=== PATIENT | male | born 1955 | race Caucasian/White ===

== ENCOUNTER 2016-08-12 11:50 | Emergency (ER) | payer OTHER ==
[~2016-08-12] VITALS: Ht 182.9 cm; Wt 110.0 kg
[~2016-08-12 11:50] MED LIST: CHLOR50 PO; LISI-360 PO; NITR0.4S SL
[2016-08-12 11:52] VITALS: BP 229/137; PULSE 70; RESP 12; TEMP 97.9; O2SAT 97
[2016-08-12 12:28] VITALS: BP_SYST 205; BP_SYST 227; BP_DIAS 119; BP_DIAS 122; PULSE 65; RESP 16; O2SAT 100
--- NOTE | 2016-08-12 17:54 | PD ---
HPI Chief Complaint: Hypertension Time Seen by Provider: 17:50 Travel History International Travel<30 days: No Contact w/Intl Traveler<30days: No Traveled to known affect area: No History of Present Illness HPI 61-year-old male presents to the emergency department for evaluation of hypertension and by his primary care physician at the [facility]. Patient states that his blood pressure has been elevated over the past month. Patient states that he would like a "therapeutic blood draw". He states this helps his blood pressure. Patient reports taking losartan and metoprolol and took these today. He reports a mild headache 08/07. He denies any chest pain or shortness breath. She reports normal stress test in 2010. [facility] Past Medical History Diminished Hearing: No Hypertension: Yes Past Surgical History Abdominal Surgery: Yes (INGUINAL HERNIA REPAIR) Oral Surgery: Yes (BROKEN JAW REPAIR) Social History Alcohol Use: Yes (OCCASIONAL) Tobacco Use: No Substance Use: No Allergies-Medications (Allergen,Severity, Reaction): Coded Allergies: No Known Allergies (Verified , 12/05/10) Reported Meds & Prescriptions Reported Meds & Active Scripts Active Reported Nitrostat (Nitroglycerin) 0.4 Mg Sub 0.4 Mg SL PRN Chlorthalidone 50 Mg Tab 50 Mg PO DAILY 1/2 TAB DAILY Lisinopril 10 Mg Tab 10 Mg PO DAILY Review of Systems Except as stated in HPI: all other systems reviewed are Neg Physical Exam Narrative GENERAL: Well-developed well-nourished male patient, ambulatory. Afebrile. SKIN: Warm and dry. HEAD: Normocephalic. Atraumatic. EYES: No scleral icterus. No injection or drainage. NECK: Supple, trachea midline. No JVD or lymphadenopathy. CARDIOVASCULAR: Regular rate and rhythm without murmurs, gallops, or rubs. RESPIRATORY: Breath sounds equal bilaterally. No accessory muscle use. Lungs sounds clear to auscultation. GASTROINTESTINAL: Abdomen soft, non-tender, nondistended. MUSCULOSKELETAL: No cyanosis, or edema. BACK: Nontender without obvious deformity. No CVA tenderness. Data Data Last Documented VS Vital Signs Date Time Temp Pulse Resp B/P Pulse Ox O2 Delivery O2 Flow Rate FiO2 08/12/16 12:28 65 16 227/122 100 205/119 08/12/16 11:52 97.9 Room Air Orders Complete Blood Count With Diff (08/12/16 17:57) Basic Metabolic Panel (Bmp) (08/12/16 17:57) Electrocardiogram (08/12/16 ) Iv Access Insert/Monitor (08/12/16 19:22) Hydralazine Inj (Apresoline Inj) (08/12/16 19:30) Labs Laboratory Tests Test 08/12/16 18:45 White Blood Count 6.5 TH/MM3 Red Blood Count 5.16 MIL/MM3 Hemoglobin 16.8 GM/DL Hematocrit 49.1 % Mean Corpuscular Volume 95.2 FL Mean Corpuscular Hemoglobin 32.5 PG Mean Corpuscular Hemoglobin 34.1 % Concent Red Cell Distribution Width 14.7 % Platelet Count 192 TH/MM3 Mean Platelet Volume 8.4 FL Neutrophils (%) (Auto) 64.5 % Lymphocytes (%) (Auto) 25.7 % Monocytes (%) (Auto) 6.5 % Eosinophils (%) (Auto) 2.9 % Basophils (%) (Auto) 0.4 % Neutrophils # (Auto) 4.2 TH/MM3 Lymphocytes # (Auto) 1.7 TH/MM3 Monocytes # (Auto) 0.4 TH/MM3 Eosinophils # (Auto) 0.2 TH/MM3 Basophils # (Auto) 0.0 TH/MM3 CBC Comment DIFF FINAL Differential Comment MDM Medical Decision Making Medical Screen Exam Complete: Yes Emergency Medical Condition: Yes Medical Record Reviewed: Yes Differential Diagnosis Hypertension versus electrolyte abnormality versus hypertensive emergency Narrative Course 61-year-old male presents to the emergency department for evaluation of elevated blood pressure. Patient initially seen in triage. Blood pressure is retaken in triage room which is [-]. Paty Martínez Aug 12, 2016 17:54
[2016-08-12 18:53] LABS: AUTOMATED NEUTROPHIL # 4.2 TH/MM3 (1.8-7.7); BASOPHIL % 0.4 % (0.0-2.0); EOSINOPHIL # 0.2 TH/MM3 (0-0.4); EOSINOPHIL % 2.9 % (0.0-4.0); HEMATOCRIT 49.1 % (39.0-51.0); HEMO FLAGS DIFF FINAL; LYMPH % 25.7 % (9.0-44.0); LYMPHOCYTE # 1.7 TH/MM3 (1.0-4.8); MEAN CELL VOLUME 95.2 FL (80.0-100.0); MEAN CORPUSCULAR HEMOGLOBIN 32.5 PG (27.0-34.0); MEAN CORPUSCULAR HGB CONC 34.1 % (32.0-36.0); MONO % 6.5 % (0.0-8.0); NEUT % 64.5 % (16.0-70.0); PLATELET COUNT 192 TH/MM3 (150-450); RED BLOOD COUNT 5.16 MIL/MM3 (4.50-5.90); RED CELL DISTRIBUTION WIDTH 14.7 % (11.6-17.2); WHITE BLOOD COUNT 6.5 TH/MM3 (4.0-11.0)
[2016-08-12 19:27] LABS: BICARBONATE 30.3 MEQ/L (21.0-32.0); POTASSIUM 3.8 MEQ/L (3.5-5.1)
[2016-08-12] MEDS ORDERED: hydrALAZINE HCL 20 MG/ML VIAL IV PUSH ONE (19:30)
[2016-08-12] MEDS ORDERED: PRAV40TA2 PO (19:39)
[2016-08-12] MEDS ORDERED: ASPI81TA81 PO (19:39)
[2016-08-12] MEDS ORDERED: METO100T PO (19:39)
[2016-08-12] MEDS ORDERED: LOSA100T PO (19:39)
[2016-08-12 19:40] VITALS: BP 214/104; PULSE 72; RESP 12; O2SAT 96
[2016-08-12 19:50] VITALS: BP 182/85; PULSE 76; RESP 12; O2SAT 98
[2016-08-12] MEDS ORDERED: CLON0.1T PO (20:03)
--- NOTE | 2016-08-12 20:03 | PD ---
Physical Exam Time Seen by Provider: 20:02 Narrative Patient was seen and evaluated initially in triage. Please refer to previous providers documentation for details surrounding the patient's current visit. Data Data Last Documented VS Vital Signs Date Time Temp Pulse Resp B/P Pulse Ox O2 Delivery O2 Flow Rate FiO2 08/12/16 20:39 72 16 152/69 100 08/12/16 19:50 Room Air 08/12/16 11:52 97.9 Orders Complete Blood Count With Diff (08/12/16 17:57) Basic Metabolic Panel (Bmp) (08/12/16 17:57) Electrocardiogram (08/12/16 ) Iv Access Insert/Monitor (08/12/16 19:22) Hydralazine Inj (Apresoline Inj) (08/12/16 19:30) Labs Laboratory Tests Test 08/12/16 08/12/16 17:57 18:45 Sodium Level 137 MEQ/L Potassium Level 3.8 MEQ/L Chloride Level 99 MEQ/L Carbon Dioxide Level 30.3 MEQ/L Anion Gap 8 MEQ/L Blood Urea Nitrogen 15 MG/DL Creatinine 1.23 MG/DL Estimat Glomerular Filtration 60 ML/MIN Rate Random Glucose 124 MG/DL Calcium Level 9.0 MG/DL White Blood Count 6.5 TH/MM3 Red Blood Count 5.16 MIL/MM3 Hemoglobin 16.8 GM/DL Hematocrit 49.1 % Mean Corpuscular Volume 95.2 FL Mean Corpuscular Hemoglobin 32.5 PG Mean Corpuscular Hemoglobin 34.1 % Concent Red Cell Distribution Width 14.7 % Platelet Count 192 TH/MM3 Mean Platelet Volume 8.4 FL Neutrophils (%) (Auto) 64.5 % Lymphocytes (%) (Auto) 25.7 % Monocytes (%) (Auto) 6.5 % Eosinophils (%) (Auto) 2.9 % Basophils (%) (Auto) 0.4 % Neutrophils # (Auto) 4.2 TH/MM3 Lymphocytes # (Auto) 1.7 TH/MM3 Monocytes # (Auto) 0.4 TH/MM3 Eosinophils # (Auto) 0.2 TH/MM3 Basophils # (Auto) 0.0 TH/MM3 CBC Comment DIFF FINAL Differential Comment MDM Medical Record Reviewed: Yes Supervised Visit with [facility]EN[facility]: No Differential Diagnosis Hypertension essential versus secondary versus hypertensive crisis versus urgency versus electrolyte abnormality Narrative Course 61-year-old male presents to emergency department for evaluation of high blood pressure. Patient's blood pressure is quite elevated but he is overall symptomatic. There are no focal deficits or weakness. Patient is given IV hydralazine and this brings his blood pressure down nicely. Lab work is without acute concern. I have discussed the patient with my attending physician. Patient is encouraged to take his blood pressure only once or twice a day. He is provided and as needed clonidine to be taken no more than twice a day. He is instructed to follow-up with his primary care provider and return immediately with any acute worsening of symptoms. Patient agrees with this plan of care. Diagnosis Primary Impression: Hypertension Qualified Code: I10 - Essential hypertension Referrals: Primary Care Physician Patient Instructions: General Instructions, Hypertension (ED) Additional Instruction: Continue medication as already prescribed Check your blood pressure once or twice a day. At the same time daily. No more than this. Keep a diary Follow-up with her primary care provider Return immediately to the emergency department with any acute worsening of symptoms Med/Other Pt SpecificInfo: Prescription(s) given Scripts Clonidine 0.1 Mg Tab0.1 Mg PO BID PRN (SBP> OR = 180, DBP> OR = 100) #15 TAB Ref 0 Prov:Ana Rosa Ortiz 08/12/16 Disposition: 01 DISCHARGE HOME Condition: Stable Ana Rosa Ortiz Aug 12, 2016 20:03
[2016-08-12 20:39] VITALS: BP 152/69
--- NOTE | 2016-08-13 08:44 | EKG ---
Date Performed: 08/12/2016 Time Performed: 18:15:14 PTAGE: 61 years EKG: Sinus rhythm NONSPECIFIC ST & T-WAVE ABNORMALITY BORDERLINE ECG PREVIOUS TRACING : 12/05/2010 11.57 DOCTOR: Scar Barth Interpretating Date/Time 08/13/2016 08:41:21
== END 2016-08-12 20:30 | disposition home or self-care (01) ==
LOC: NEPB 11:50
DX: I10 Essential (primary) hypertension (principal); R51 Headache; R94.31 Abnormal electrocardiogram [ECG] [EKG]
CPT/HCPCS: 80048; 85025; 93005; 96374; 99283; J0360

== ENCOUNTER 2017-04-07 22:17 | Emergency (ER) | payer OTHER ==
[~2017-04-07] VITALS: Ht 182.9 cm; Wt 110.0 kg
[~2017-04-07 22:17] MED LIST changes: +ASPI81TA81 PO; +CLON0.1T PO; +LOSA100T PO; +METO100T PO; +PRAV40TA2 PO
[2017-04-07] MEDS ORDERED: SODIUM CHLOR 0.9% 1000 ML INJ 1,000 ML IV ONE (22:51)
--- NOTE | 2017-04-07 22:53 | PD ---
HPI Chief Complaint: Lightheadedness Time Seen by Provider: 22:51 Travel History International Travel<30 days: No Contact w/Intl Traveler<30days: No History of Present Illness HPI 62yo M was brought in by [facility] after feeling lightheaded and nauseous. Pt was sitting in a bar when he became diaphoretic, nauseous and felt like he was going to pass out but did not. Pt was found to be hypotensive with systolic in the 70s. Denies any fever, chest pain, sob, vomiting, abdominal pain, focal weakness or numbness. Pt recently returned from [place]. PFSH Past Medical History High Cholesterol: Yes Diminished Hearing: No Hypertension: Yes Past Surgical History Abdominal Surgery: Yes (INGUINAL HERNIA REPAIR) Oral Surgery: Yes (BROKEN JAW REPAIR) Other Surgery: Yes (LT CORIOTED X 2) Social History Alcohol Use: Yes (OCCASIONAL) Tobacco Use: No Substance Use: No Allergies-Medications (Allergen,Severity, Reaction): Coded Allergies: No Known Allergies (Verified , 04/08/17) Reported Meds & Prescriptions Reported Meds & Active Scripts Active Clonidine (Clonidine HCl) 0.1 Mg Tab 0.1 Mg PO BID PRN Reported Aspir-81 (Aspirin) 81 Mg Tabdr 1 Tab PO DAILY Losartan (Losartan Potassium) 100 Mg Tab 100 Mg PO DAILY Metoprolol Tartrate 100 Mg Tab 100 Mg PO DAILY Pravastatin 40 Mg Tab 40 Mg PO HS Nitrostat (Nitroglycerin) 0.4 Mg Sub 0.4 Mg SL PRN Chlorthalidone 50 Mg Tab 50 Mg PO DAILY 1/2 TAB DAILY Lisinopril 10 mg (Lisinopril) 10 Mg Tab 10 Mg PO DAILY Review of Systems Except as stated in HPI: all other systems reviewed are Neg Physical Exam Narrative GENERAL: 62yo M not in distress. SKIN: Focused skin assessment warm/dry. HEAD: Atraumatic. Normocephalic. EYES: Pupils equal and round at 3mm bilaterally. No scleral icterus. No injection or drainage. ENT: No nasal bleeding or discharge. Mucous membranes pink and moist. NECK: Trachea midline. No JVD. CARDIOVASCULAR: Regular rate and rhythm. No murmur appreciated. RESPIRATORY: No accessory muscle use. Clear to auscultation. Breath sounds equal bilaterally. GASTROINTESTINAL: Abdomen soft, non-tender, nondistended. MUSCULOSKELETAL: No obvious deformities. No clubbing. No cyanosis. No edema. NEUROLOGICAL: Awake and alert. No obvious cranial nerve deficits. Motor grossly within normal limits. Normal speech. PSYCHIATRIC: Appropriate mood and affect; insight and judgment normal. Data Data Last Documented VS Vital Signs Date Time Temp Pulse Resp B/P (MAP) Pulse Ox O2 Delivery O2 Flow Rate FiO2 04/08/17 01:43 82 16 137/66 (89) 97 Room Air 04/07/17 23:25 98.9 Orders Orders Basic Metabolic Panel (Bmp) (04/07/17 22:51) Complete Blood Count With Diff (04/07/17 22:51) Troponin I (04/07/17 22:51) Urinalysis - C+S If Indicated (04/07/17 22:51) Chest, Single Ap (04/07/17:51) Blood Glucose (04/07/17:51) Ecg Monitoring (04/07/17:51) Iv Access Insert/Monitor (04/07/17 22:51) Oximetry (04/07/17 22:51) Sodium Chloride 0.9% Flush (Ns Flush) (04/07/17 23:00) Sodium Chlor 0.9% 1000 Ml Inj (Ns 1000 M (04/07/17 22:51) Orthostatic Vital Signs (04/07/17 22:51) Labs Laboratory Tests Test 04/07/17 23:30 04/08/17 02:35 White Blood Count 7.8 TH/MM3 Red Blood Count 4.69 MIL/MM3 Hemoglobin 15.0 GM/DL Hematocrit 43.3 % Mean Corpuscular Volume 92.3 FL Mean Corpuscular Hemoglobin 31.9 PG Mean Corpuscular Hemoglobin Concent 34.6 % Red Cell Distribution Width 13.0 % Platelet Count 189 TH/MM3 Mean Platelet Volume 9.4 FL Neutrophils (%) (Auto) 73.7 % Lymphocytes (%) (Auto) 17.0 % Monocytes (%) (Auto) 7.3 % Eosinophils (%) (Auto) 1.7 % Basophils (%) (Auto) 0.3 % Neutrophils # (Auto) 5.7 TH/MM3 Lymphocytes # (Auto) 1.3 TH/MM3 Monocytes # (Auto) 0.6 TH/MM3 Eosinophils # (Auto) 0.1 TH/MM3 Basophils # (Auto) 0.0 TH/MM3 CBC Comment DIFF FINAL Differential Comment Blood Urea Nitrogen 22 MG/DL Creatinine 1.96 MG/DL Random Glucose 99 MG/DL Calcium Level 8.9 MG/DL Sodium Level 140 MEQ/L Potassium Level 3.5 MEQ/L Chloride Level 103 MEQ/L Carbon Dioxide Level 30.4 MEQ/L Anion Gap 7 MEQ/L Estimat Glomerular Filtration Rate 35 ML/MIN Troponin I LESS THAN 0.02 NG/ML Urine Color YELLOW Urine Turbidity HAZY Urine pH 5.5 Urine Specific [place] 1.016 Urine Protein TRACE mg/dL Urine Glucose (UA) NEG mg/dL Urine Ketones NEG mg/dL Urine Occult Blood NEG Urine Nitrite NEG Urine Bilirubin NEG Urine Urobilinogen 2.0 MG/DL Urine Leukocyte Esterase TRACE Urine RBC 3 /hpf Urine WBC 7 /hpf Urine Squamous Epithelial Cells 1 /hpf Urine Amorphous Sediment RARE Urine Hyaline Casts 14 /lpf Urine Mucus FEW /lpf Urine Sperm OCC Microscopic Urinalysis Comment CULT NOT INDICATED MDM Medical Decision Making Medical Screen Exam Complete: Yes Emergency Medical Condition: Yes Interpretation(s) EKG: NSR 75bpm. Normal axis. No ST segment elevation or depression. TWI aVL. Differential Diagnosis Vasovagal near syncope vs. arrhythmia vs. infection Narrative Course 62yo M with lightheadedness, nausea while sitting in a bar. Labs reviewed, no leukocytosis. Troponin negative. BUN/creatinine mildly increased at 22/1.96 from 15/1.23. Pt's BP on arrival was 100/68. Pt given NS IVF and BP is now 137 /66. HR is 82bpm. Orthostatic negative. Pt has been ambulating in the ED without any dizziness. States he feels better and wants to go home. Offered admission for near syncope work up but pt states he can called [place] [facility]op maker and have monitoring as outpatient. Pt does not want to stay. UA showed WBC 7. Culture not indicated. There are hyaline casts. Instructed pt to hydrate orally. Pt has no symptoms currently. Diagnosis Primary Impression: Dizziness Patient Instructions: General Instructions Departure Forms: Tests/Procedures Additional Instructions: Please follow up with your primary care physician and mop maker in 1-2 days. Return to the ED if symptoms worsen. Med/Other Pt SpecificInfo: No Change to Meds Disposition: 01 DISCHARGE HOME Condition: Stable Portia Uribe Apr 07, 2017 22:53
[2017-04-07] MEDS ORDERED: SODIUM CHLORIDE 0.9% FLUSH 10 ML FLUSH IVF PRN (23:00)
[2017-04-07 23:15] VITALS: BP 100/68; PULSE 77; RESP 16; O2SAT 100
[2017-04-07 23:25] VITALS: BP 100/68; PULSE 77; RESP 16; TEMP 98.9; O2SAT 100
--- NOTE | 2017-04-07 23:30 | RADRPT ---
EXAM DATE/TIME: 04/07/2017 22:56 [facility] COMPARISON: No previous studies available for comparison. INDICATIONS : Dizziness. MEDICAL HISTORY : Hypertension. SURGICAL HISTORY : None. ENCOUNTER: Initial ACUITY: 1 day PAIN SCORE: 0/10 LOCATION: Bilateral chest FINDINGS: A single view of the chest demonstrates the lungs to be symmetrically aerated without evidence of mas s, infiltrate or effusion. The cardiomediastinal contours are unremarkable. Osseous structures are intact. CONCLUSION: No acute disease. Deacon Parada MD on April 07, 2017 at 23:29 Board Certified Radiologist. This report was verified electronically.
[2017-04-08 00:23] LABS: AUTOMATED NEUTROPHIL # 5.7 TH/MM3 (1.8-7.7); BASOPHIL % 0.3 % (0.0-2.0); EOSINOPHIL # 0.1 TH/MM3 (0-0.4); EOSINOPHIL % 1.7 % (0.0-4.0); HEMATOCRIT 43.3 % (39.0-51.0); HEMO FLAGS DIFF FINAL; LYMPHOCYTE # 1.3 TH/MM3 (1.0-4.8); MEAN CELL VOLUME 92.3 FL (80.0-100.0); MEAN CORPUSCULAR HEMOGLOBIN 31.9 PG (27.0-34.0); MEAN CORPUSCULAR HGB CONC 34.6 % (32.0-36.0); MONO % 7.3 % (0.0-8.0); NEUT % 73.7 % (16.0-70.0); PLATELET COUNT 189 TH/MM3 (150-450); RED BLOOD COUNT 4.69 MIL/MM3 (4.50-5.90); WHITE BLOOD COUNT 7.8 TH/MM3 (4.0-11.0)
[2017-04-08 00:40] LABS: ANION GAP 7 MEQ/L (5-15); BICARBONATE 30.4 MEQ/L (21.0-32.0); BLOOD UREA NITROGEN 22 MG/DL (7-18); CHLORIDE 103 MEQ/L (98-107); GLOMERULAR FILTRATION RATE 35 ML/MIN (>89); POTASSIUM 3.5 MEQ/L (3.5-5.1); SODIUM (NA) 140 MEQ/L (136-145)
[2017-04-08 01:17] VITALS: BP_SYST 128; BP_SYST 130; BP_SYST 137; BP_DIAS 66; BP_DIAS 67; BP_DIAS 69; RESP 18
[2017-04-08 01:43] VITALS: BP 137/66; PULSE 82; RESP 16; O2SAT 97
[2017-04-08 02:46] LABS: BLOOD, URINE NEG (NEG); COMMENT (UR) CULT NOT INDICATED; CULTURE IF INDICATED CULT NOT INDICATED; GLUCOSE,URINE NEG (NEG); HYALINE CAST, URINE 14 /lpf (RARE); KETONE, URINE NEG (NEG); MUCUS URINE FEW /lpf (OCC); NITRITE,URINE NEG (NEG); PH, URINE 5.5 (5.0-8.5); SQUAMOUS EPITHELIAL CELL URINE 1 /hpf (0-5); URINE COLOR YELLOW (YELLW/STRAW)
[2017-04-08 03:51] VITALS: BP 130/76
--- NOTE | 2017-04-08 12:22 | EKG ---
Date Performed: 04/07/2017 Time Performed: 22:27:12 PTAGE: 62 years EKG: Sinus rhythm POSSIBLE RIGHT VENTRICULAR CONDUCTION DELAY NONSPECIFIC T-WAVE ABNORMALITY BORDERLINE ECG Compared t o prior tracing no significant change DOCTOR: Lizzette Baker Interpretating Date/Time 04/08/2017 12:17:41
== END 2017-04-08 03:52 | disposition home or self-care (01) ==
LOC: NEPC 22:17
DX: R42 Dizziness and giddiness (principal); R11.0 Nausea; R61 Generalized hyperhidrosis; R94.31 Abnormal electrocardiogram [ECG] [EKG]; I10 Essential (primary) hypertension; E78.00 Pure hypercholesterolemia, unspecified
CPT/HCPCS: 71010; 80048; 81001; 84484; 85025; 93005; 96360; 96361; 99284; J7030